=== PATIENT | female | born 2000 ===

== ENCOUNTER 2020-10-03 13:45 | Observation (INO) | payer OTHER | END 2020-10-03 15:31 | disposition home or self-care (01) | LOC: LDRP 13:45 | PROVIDERS: ADMIT Obstetrics & Gynecology; ATTEND Obstetrics & Gynecology | DX: O23.42 Unspecified infection of urinary tract in pregnancy, second trimester (principal); O23.592 Infection of other part of genital tract in pregnancy, second trimester; B37.3 Candidiasis of vulva and vagina; O26.892 Other specified pregnancy related conditions, second trimester; N89.8 Other specified noninflammatory disorders of vagina; Z3A.24 24 weeks gestation of pregnancy | CPT/HCPCS: 59025; 81002; 94760; G0378 ==